=== PATIENT | female | born 1980 | race Caucasian/White ===

== ENCOUNTER 2019-07-30 10:30 | Emergency (ER) | payer SELFPAY ==
[2019-07-30 10:50] VITALS: BP 114/69; PULSE 80; RESP 18; TEMP 36.7; O2SAT 100
--- NOTE | 2019-07-30 11:06 | ED.GENADULT ---
HPI - General Adult General Chief complaint: Extremity Problem,Nontraumatic Stated complaint: swelling/legs,hands,toes Time Seen by Provider: 07/30/19 11:09 Source: patient and RN notes reviewed Mode of arrival: ambulatory Limitations: no limitations History of Present Illness HPI narrative: This is a 38 years old female presents to the office for an evaluation of upper and lower extremities swelling for seven days. Associated with pain when she walks on it. Denies trauma/injury; however she reports chronic lower back pain. Denies history of leg swelling in the past. Denies history of CHF. Admits to history of DVT in her right lung. She is not medication compliant. She did not attempt to call her doctor. She admits to eating salty and does not drink enough water. She is a smoker. Related Data Home Medications Medication Instructions Recorded Confirmed Cortisone Shots 07/30/19 baclofen mg 07/30/19 clonazepam 07/30/19 hydrocodone-acetaminophen 07/30/19 ropinirole mg 07/30/19 venlafaxine mg PO 07/30/19 Allergies Allergy/AdvReac Type Severity Reaction Status Date / Time Penicillins Allergy Mild Swelling Unverified 03/24/18 12:44 Review of Systems Review of Systems: Narrative: CONSTITUTIONAL: Denies fever ENT: Denies congestion CARDIOVASCULAR: Denies chest pain, palpitation RESPIRATORY: Denies dyspnea GASTROINTESTINAL: Denies abdominal pain, nausea, vomiting, diarrhea. GENITOURINARY: Denies urinary symptoms SKIN: Denies rash MUSCULOSKELETAL:Reports chronic lower back pain. Reports bilateral lower legs swelling NEUROLOGIC: Denies lightheaded PMFSH Past Medical History Medical History (Updated 07/30/19 @ 11:18 by KENNEDI Urrutia) Anxiety and depression Chronic back pain Pulmonary embolism Surgical History Surgical History (Updated 07/30/19 @ 11:08 by KENNEDI Urrutia) H/O section Family History Family History (Updated 07/30/19 @ 11:23 by KENNEDI Urrutia) Other Heart disease Social History Social History (Updated 07/30/19 @ 11:23 by KENNEDI Urrutia) Smoking status: Current every day smoker Comments At time of signature, I agree with nursing past medical, surgical, social and family history. There is no relevant family history pertinent to the presenting complaint. Exam Narrative: Exam Narrative: GENERAL: This is a well-nourished, well-developed patient, in no apparent distress. CARDIOVASCULAR: Regular rate and rhythm without murmurs, gallops, or rubs. RESPIRATORY: Clear to auscultation. Breath sounds equal bilaterally. No wheezes, rales, or rhonchi. GASTROINTESTINAL: Abdomen soft, non-tender, nondistended. Bowel sounds are active. No hepato-splenomegaly, or palpable masses. No guarding. SKIN: warm, intact with no suspicious lesions or rash, good texture and turgor. NEURO: awake, alert, and oriented to person, place and time. There were no obvious focal neurologic abnormalities. Steady gait EXTREMITIES: bilateral lower legs pitting edematous with erythema. No obvious rash/lesions. No warmth. Kristin Coma Scale Eye Opening: Spontaneous 4 [place] Coma Scale Motor: Obeys Commands 6 Kristin Coma Scale Verbal: Oriented 5 Course Vital Signs Vital signs: Vital Signs Temperature 98.1 F 07/30/19 10:50 Pulse Rate 80 07/30/19 10:50 Respiratory Rate 18 07/30/19 10:50 Blood Pressure 114/69 07/30/19 10:50 Pulse Oximetry 100 07/30/19 10:50 Temperature 98.1 F 07/30/19 10:50 Pulse Rate 80 07/30/19 10:50 Respiratory Rate 18 07/30/19 10:50 Blood Pressure 114/69 07/30/19 10:50 Pulse Oximetry 100 07/30/19 10:50 Medical Decision Making MDM Narrative Medical decision making narrative: Leg swelling likely result from fluid retention rather than cellulitis or injury, I recommend she call her doctor for blood test or seek ER visit if you can't get an appointment. She will call her doctor when she get home and if she ca
== END 2019-07-30 11:21 | disposition home or self-care (01) ==
PROVIDERS: Emergency Provider Nurse Practitioner
DX: M79.89 Other specified soft tissue disorders (principal); F41.9 Anxiety disorder, unspecified; F32.9 Major depressive disorder, single episode, unspecified; M54.5 Low back pain; G89.29 Other chronic pain; Z86.711 Personal history of pulmonary embolism; F17.200 Nicotine dependence, unspecified, uncomplicated
CPT/HCPCS: 99211; G0463